=== PATIENT | female | born 1980 | race Caucasian/White ===

== ENCOUNTER 2019-10-19 15:43 | Emergency (ER) | payer BC ==
[2019-10-19] MEDS ORDERED: LORazepam 1 MG Tab PO ONE (16:24)
[2019-10-19 16:45] LABS: CHLORIDE,CL 102 mmol/L (98-107); SODIUM,NA 140 mmol/L (136-145)
[2019-10-19 16:46] LABS: ANION GAP 19.3 mmol/L (10-20)
[2019-10-19 16:56] LABS: ACETAMINOPHEN 0 ug/ml (10-30)
[2019-10-19] MEDS ORDERED: OLANZapine 10 MG Vial IM ONE (17:06)
[2019-10-19 17:15] LABS: BARBITURATE SCREEN,URINE NEGATIVE (NEGATIVE); BENZODIAZEPINES SCREEN,URINE POSITIVE (NEGATIVE); EDDP,URINE SCREEN NEGATIVE (NEGATIVE); METHAMPHETAMINE SCREEN, URINE NEGATIVE (NEGATIVE); TCA SCREEN,URINE NEGATIVE (NEGATIVE); THC SCREEN,URINE 50 NG/ML NEGATIVE (NEGATIVE)
--- NOTE | 2019-10-19 17:15 | EDM.PDOCBH ---
ED HPI GENERAL MEDICAL PROBLEM - General Chief Complaint: Behavioral/Psych Stated Complaint: ER Time Seen by Provider: 10/19/19 15:50 Source of Information: Reports: Patient History Limitations: Reports: Altered Mental Status - History of Present Illness INITIAL COMMENTS - FREE TEXT/NARRATIVE: Patient comes emergency department today her with concerns of acute psychosis recurring. This patient in March 2018 had acute psychotic episode where she was hospitalized inpatient at [facility] for approximately a month and a half. She received multiple ECT treatments. She has been following up with her psychiatrist at [facility] in [place]. Over the past about a month she has had increasing thoughts that are constantly racing. She is becoming more agitated. She has not been able to sleep at night. She has been eating and drinking appropriately. 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 She is struggling with her kids constantly being home with the current pandemic of COVID and she is getting more worked up about it. Last night she became severely agitated and paranoid that everything was going to go wrong. She had no suicidal or homicidal ideation. She comes to the ER today concerning that she has an psychotic event. She denies any hallucinations or delusions. SHe feels safe in the ED and with her . 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: Musculoskeletal History: Reports: None Neurological History: Reports: None Psychiatric History: Reports: Anxiety, Depression Endocrine/Metabolic History: Reports: None Oncologic (Cancer) History: Reports: None Dermatologic History: Reports: None - Past Surgical History Head Surgeries/Procedures: Reports: None HEENT Surgical History: Reports: None Cardiovascular Surgical History: Reports: None Female Surgical History: Reports: None Musculoskeletal Surgical History: Reports: None Social & Family History - Family History Family Medical History: Noncontributory - Caffeine Use Caffeine Use: Reports: Coffee, Soda ED ROS GENERAL - Review of Systems Review Of Systems: Comprehensive ROS is negative, except as noted in HPI. ED EXAM, BEHAVIORAL HEALTH - Physical Exam Exam: See Below Text/Narrative:: This was a very interesting exam in HPI process. Initially during her HPI the patient was very calm she was quiet there is no confusion she was very open she was tearful and she was scared. When she started talking about the bahai issues that she has with her mother as she had a very big change in her demeanor. She became very fixated [place] with very fixated eye contact. She became agitated and got my face and stated "I am not safe here any longer and I see Jarrett". She then began to be more aggitated pacing around the room telling everyone that jarrett is our savior and we need to know that and we will all be reconciled for our faults. She was more agitated and very persistent and delusional about bahai concerns. Her hygiene is appropriate. She is dressed appropriately for the outside conditions. Exam Limited By: No Limitations General Appearance: Alert, WD/WN, No Apparent Distress, Anxious Eye Exam: Bilateral Eye: EOMI Ears: Normal External Exam Nose: Normal Inspection Throat/Mouth: Normal Inspection, Normal Lips Head: Atraumatic Neck: Normal Inspection, Supple Respiratory/Chest: No Respiratory Distress, Lungs Clear, Normal Breath Sounds Cardiovascular: Normal Peripheral Pulses, Regular Rate, Rhythm GI/Abdominal: Normal Bowel Sounds, Soft (Female) Exam: Deferred Rectal (Female) Exam: Deferred Back Exam: Normal Inspection Extremities: Normal Inspection, Normal Range of Motion, No Pedal Edema, Normal Capillary Refill Neurological: Alert. No: Normal Mood/Affect (she has a very quick modulated demeanor. ) Psychiatric: Zoroastrianism Delusions. No: Normal Affect (She has a modulated very quickly changing demeanor from calm appropriate and no confusion to periods of about 15 minutes of agitation bahai delusion and fixed eye contact. ), Suicidal Plan, Suicidal Thoughts, Auditory Hallucinations, Visual Hallucinations , Paranoid Thoughts, Threatening Behavior Skin Exam: Warm, Dry, Intact, Normal color, No rash COURSE, BEHAVIORAL HEALTH COMP - Course Vital Signs: Last Vital Signs Temp 36.3 C 10/19/19 15:50 Pulse 82 10/19/19 17:41 Resp 16 10/19/19 17:41 BP 145/78 H 10/19/19 17:41 Pulse Ox 97 10/19/19 17:41 Orders, Labs, Meds: Active Orders 24 hr Category Date Time Status SALICYLATE [REF] Stat Lab 10/19/19 16:12 Received Laboratory Tests 10/19/19 10/19/19 10/19/19 Range/Units 16:12 16:12 17:10 WBC 6.6 (4.0-10.0) x10^3/uL RBC 4.41 (4.00-5.50) x10^6/uL Hgb 13.0 (12.0-16.0) g/dL Hct 38.4 (33.0-47.0) % MCV 87.1 D (78.0-93.0) fL MCH 29.5 (26.0-32.0) pg MCHC 33.9 (32.0-36.0) g/dL RDW Coeff of Andra 13.4 (10.0-15.0) % Plt Count 280 (130-400) x10^3/uL Add Manual Diff Yes Neutrophils % (Manual) 67 (50-80) % Band Neutrophils % 1 (0-6) % Lymphocytes % (Manual) 15 L (25-50) % Reactive Lymphs % 6 H (0) % Monocytes % (Manual) 11 (2-11) % Platelet Estimate Adequate Sodium 140 (136-145) mmol/L Potassium 3.3 L (3.5-5.1) mmol/L Chloride 102 (98-107) mmol/L Carbon Dioxide 22 (21-32) mmol/L Anion Gap 19.3 (10-20) mmol/L BUN 11 (7-18) mg/dL Creatinine 1.0 (0.55-1.02) mg/dL Est Cr Clr Drug Dosing 64.58 mL/min Estimated GFR (MDRD) > 60 Glucose 116 H (74-106) mg/dL Calcium 9.3 (8.5-10.1) mg/dL Corrected Calcium 8.98 (8.5-10.1) mg/dL Magnesium 2.0 (1.8-2.4) mg/dL Total Bilirubin 0.6 (0.2-1.0) mg/dL AST 24 (15-37) U/L ALT 28 (14-59) U/L Alkaline Phosphatase 59 (46-116) U/L Total Protein 7.7 (6.4-8.2) g/dL Albumin 4.4 (3.4-5.0) g/dL Globulin 3.3 Albumin/Globulin Ratio 1.33 TSH, Ultra Sensitive 1.817 (0.358-3.74) uIU/mL Urine Color Yellow (YELLOW) Urine Appearance Clear (CLEAR) Urine pH 7.0 (5.0-8.0) Ur Specific [place] 1.020 Urine Protein Negative (NEGATIVE) mg/dL Urine Glucose (UA) Negative (NEGATIVE) mg/dL Urine Ketones 15 H (NEGATIVE) mg/dL Urine Occult Blood Negative (NEGATIVE) Urine Nitrite Negative (NEGATIVE) Urine Bilirubin Negative (NEGATIVE) Urine Urobilinogen 0.2 (0.2) EU/dL Ur Leukocyte Esterase Negative (NEGATIVE) Urine Opiates Screen (NEGATIVE) Ur Buprenorphine Scrn (NEGATIVE) Ur Oxycodone Screen (NEGATIVE) Ur EDDP (Meth Metab) (NEGATIVE) Urine Methadone Screen (NEGATIVE) Acetaminophen 0 L (10-30) ug/ml Ur Barbiturates Screen (NEGATIVE) Ur Tricyclics Screen (NEGATIVE) Ur Phencyclidine Scrn (NEGATIVE) Ur Amphetamine Screen (NEGATIVE) U Methamphetamines Scrn (NEGATIVE) Urine MDMA Screen (NEGATIVE) U Benzodiazepines Scrn (NEGATIVE) U Cocaine Metab Screen (NEGATIVE) U Marijuana (THC) Screen (NEGATIVE) Ethyl Alcohol < 3 (0-3) mg/dL 10/19/19 Range/Units 17:10 WBC (4.0-10.0) x10^3/uL RBC (4.00-5.50) x10^6/uL Hgb (12.0-16.0) g/dL Hct (33.0-47.0) % MCV (78.0-93.0) fL MCH (26.0-32.0) pg MCHC (32.0-36.0) g/dL RDW Coeff of Andra (10.0-15.0) % Plt Count (130-400) x10^3/uL Add Manual Diff Neutrophils % (Manual) (50-80) % Band Neutrophils % (0-6) % Lymphocytes % (Manual) (25-50) % Reactive Lymphs % (0) % Monocytes % (Manual) (2-11) % Platelet Estimate Sodium (136-145) mmol/L Potassium (3.5-5.1) mmol/L Chloride (98-107) mmol/L Carbon Dioxide (21-32) mmol/L Anion Gap (10-20) mmol/L BUN (7-18) mg/dL Creatinine (0.55-1.02) mg/dL Est Cr Clr Drug Dosing mL/min Estimated GFR (MDRD) Glucose (74-106) mg/dL Calcium (8.5-10.1) mg/dL Corrected Calcium (8.5-10.1) mg/dL Magnesium (1.8-2.4) mg/dL Total Bilirubin (0.2-1.0) mg/dL AST (15-37) U/L ALT (14-59) U/L Alkaline Phosphatase (46-116) U/L Total Protein (6.4-8.2) g/dL Albumin (3.4-5.0) g/dL Globulin Albumin/Globulin Ratio TSH, Ultra Sensitive (0.358-3.74) uIU/mL Urine Color (YELLOW) Urine Appearance (CLEAR) Urine pH (5.0-8.0) Ur Specific [place] Urine Protein (NEGATIVE) mg/dL Urine Glucose (UA) (NEGATIVE) mg/dL Urine Ketones (NEGATIVE) mg/dL Urine Occult Blood (NEGATIVE) Urine Nitrite (NEGATIVE) Urine Bilirubin (NEGATIVE) Urine Urobilinogen (0.2) EU/dL Ur Leukocyte Esterase (NEGATIVE) Urine Opiates Screen Negative (NEGATIVE) Ur Buprenorphine Scrn Negative (NEGATIVE) Ur Oxycodone Screen Negative (NEGATIVE) Ur EDDP (Meth Metab) Negative (NEGATIVE) Urine Methadone Screen Negative (NEGATIVE) Acetaminophen (10-30) ug/ml Ur Barbiturates Screen Negative (NEGATIVE) Ur Tricyclics Screen Negative (NEGATIVE) Ur Phencyclidine Scrn Negative (NEGATIVE) Ur Amphetamine Screen Negative (NEGATIVE) U Methamphetamines Scrn Negative (NEGATIVE) Urine MDMA Screen Negative (NEGATIVE) U Benzodiazepines Scrn Positive H (NEGATIVE) U Cocaine Metab Screen Negative (NEGATIVE) U Marijuana (THC) Screen Negative (NEGATIVE) Ethyl Alcohol (0-3) mg/dL Medications Discontinued Medications Generic Name Dose Route Start Last Admin Trade Name Delfina PRN Reason Stop Dose Admin Lorazepam 2 mg 10/19/19 16:24 10/19/19 16:32 Ativan PO 10/19/19 16:25 2 mg ONETIME ONE Administration Olanzapine 10 mg 10/19/19 17:06 10/19/19 17:19 Zyprexa IM 10/19/19 17:07 10 mg ONETIME ONE Administration Re-Assessment/Re-Exam: Initially the patient was given Ativan 2mg PO about 1/2 hr later she developed more agitation and bahai persecutions. Thinks that she is seeing God. She has very fixed eye contact and very intense. She is going outside of her room to other patients room and discussing her bahai concerns. ' Give her 10 mg of Zyprexa IM. Is really interesting because these episodes above last for about 10 to 15 minutes and when she becomes lucent she knows that she just had what she relates is a psychotic episode. Back to very personable open scared appropriate non-confused or psychotic person. She really knows that she needs help so that she does not get worse. I called and spoke with Dr. Mayi Hussein Psych hospitalist kb at [facility] in [place]. HPI ER COURSE findings and concerns were relayed to him. His questions were answered and he accepted the patient in transfer to [facility] for further care and management. The patient and her are comfortable and happy with this plan. Their questions are answered and looking forward to hospitalization and management. Departure - Departure Time of Disposition: 18:09 Disposition: DC/Tfer to Acute Hospital 02 Clinical Impression: Acute psychosis - Discharge Information Referrals: Perla Cadet PA-C [Primary Care Provider] - Forms: ED Department Discharge Sepsis Event Note (ED) - Evaluation Sepsis Screening Result: No Definite Risk - Focused Exam Vital Signs: Vital Signs Temp Pulse Resp BP Pulse Ox 10/19/19 17:41 82 16 145/78 H 97 10/19/19 15:50 36.3 C 105 H 16 177/75 H 98 - My Orders Last 24 Hours: My Active Orders 10/19/19 16:12 SALICYLATE [REF] Stat - Assessment/Plan Last 24 Hours: My Active Orders 10/19/19 16:12 SALICYLATE [REF] Stat Assessment:: Acute psychosis reoccurring Plan: Transfer by ambulance to [facility] for inpatient management.
[2019-10-19 17:42] VITALS: BP 145/78; PULSE 82
== END 2019-10-19 19:10 | disposition short-term general hospital (02) ==
LOC: VM.ED 15:43 → EEVIPCON 15:43 → VM.ED 19:10
DX: F23 Brief psychotic disorder (principal); F41.9 Anxiety disorder, unspecified; F32.9 Major depressive disorder, single episode, unspecified; Z79.899 Other long term (current) drug therapy
CPT/HCPCS: 36415; 80053; 80305; 80307; 81003; 83735; 84443; 85025; 96372; 99285; A9270; J3490

== ENCOUNTER 2019-10-21 22:27 | Emergency (ER) | payer BC ==
[2019-10-21 22:36] VITALS: BP 146/89; PULSE 118
[2019-10-21] MEDS ORDERED: OLANZapine 10 MG Vial IM ONE (23:01)
[2019-10-21] MEDS ORDERED: LORazepam 2 MG/ML SDV IM ONE (23:01)
--- NOTE | 2019-10-21 23:38 | EDM.PDOC ---
ED HPI GENERAL MEDICAL PROBLEM - General Chief Complaint: Behavioral/Psych Stated Complaint: ER Time Seen by Provider: 10/21/19 22:44 Source of Information: Reports: Patient, Family, Old Records History Limitations: Reports: No Limitations - History of Present Illness INITIAL COMMENTS - FREE TEXT/NARRATIVE: Pt. presents to ER with complaints of severe anxiety and "panic attack". She states that she was discharged from [facility] today. Pt. was hospitalized at [facility] from 10/19/2019 until today 10/21/2019. Primary diagnosis was acute panic attack, unspecified psychosis, brief psychotic episode, and generalized anxiety disorder. She was started on olanzapine 10mg QHS and has only taken the medication 3 times in total. She was also prescribed ativan but has not taken any since this AM. Pt. states that she woke up tonight with racing thoughts and concerns that her is severely distressed. This is similar to her presentation during previous psychotic events. Denies any acute suicidal or homicidal ideation. states that when she woke, she was extremely anxious, crying, and shaking. She has a history of previous episode of acute psychosis in 2018 and was hospitalized at [facility] for a month and a half. During that time, she underwent ECT. 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 She was transferred to [facility] in [place] via ambulance on 10/18. At that time, she stated that she has been increasingly stressed due to the covid 19 duties at the hospital, and due to the fact that her children have been home all the time. She has 3 children at home. She is . She denies any chest pain, shortness of breath, nausea, vomiting, diarrhea, fever, chills, or cough. Onset: Today Location: Reports: Generalized - Related Data Allergies Allergy/AdvReac Type Severity Reaction Status Date / Time No Known Allergies Allergy Verified 10/21/19 22:32 Home Meds: Home Meds Multivitamin [Multi-Vitamin Daily] 1 tab PO DAILY 03/16/18 [History] LORazepam [Lorazepam] 0.5 mg PO Q4H PRN 10/19/19 [History] Magnesium Oxide 500 mg PO DAILY 10/19/19 [History] Mirtazapine 22.5 mg PO BEDTIME 10/19/19 [History] OLANZapine [ZyPREXA] 10 mg PO BEDTIME 10/21/19 [History] Past Medical History - Past Health History Medical/Surgical History: Denies Medical/Surgical History Respiratory History: Reports: None Gastrointestinal History: Reports: None Genitourinary History: Reports: None 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: Musculoskeletal History: Reports: None Neurological History: Reports: None Psychiatric History: Reports: Anxiety, Depression Endocrine/Metabolic History: Reports: None Oncologic (Cancer) History: Reports: None Dermatologic History: Reports: None - Past Surgical History Head Surgeries/Procedures: Reports: None HEENT Surgical History: Reports: None Cardiovascular Surgical History: Reports: None Female Surgical History: Reports: None Musculoskeletal Surgical History: Reports: None Social & Family History - Family History Family Medical History: Noncontributory - Tobacco Use Smoking Status *Q: Current Status Unknown - Caffeine Use Caffeine Use: Reports: Coffee, Soda ED ROS GENERAL - Review of Systems Review Of Systems: See Below Constitutional: Reports: No Symptoms HEENT: Reports: No Symptoms Respiratory: Reports: No Symptoms Cardiovascular: Reports: No Symptoms Endocrine: Reports: No Symptoms GI/Abdominal: Reports: No Symptoms : Reports: No Symptoms Musculoskeletal: Reports: No Symptoms Skin: Reports: No Symptoms Neurological: Reports: No Symptoms Psychiatric: Reports: Agitation, Anxiety Hematologic/Lymphatic: Reports: No Symptoms Immunologic: Reports: No Symptoms ED EXAM, GENERAL - Physical Exam Exam: See Below Exam Limited By: No Limitations General Appearance: Alert, WD/WN, No Apparent Distress Eye Exam: Bilateral Eye: EOMI, PERRL Throat/Mouth: Normal Lips, Normal Teeth, Normal Voice, No Airway Compromise Head: Atraumatic, Normocephalic Neck: Normal Inspection, Supple, Non-Tender Respiratory/Chest: No Respiratory Distress, Lungs Clear Cardiovascular: Normal Peripheral Pulses, No Edema, No Rub, Tachycardia Peripheral Pulses: 4+: Radial (L) Extremities: Normal Inspection, Normal Range of Motion, Non-Tender Neurological: Alert, Oriented, Normal Gait, No Motor/Sensory Deficits, Confused Psychiatric: Anxious, Tearful, Other (Pt. confused. She had forgotten that I had spoken with her initially. Repeating herself and her concerns about her . She is otherwise alert to time, date and place. She recognizes her past medical history and coworkers.) Course - Vital Signs Last Recorded V/S: Last Vital Signs Temp 36.6 C 10/21/19 22:33 Pulse 118 H 10/21/19 22:33 Resp 18 10/21/19 22:33 BP 146/89 H 10/21/19 22:33 Pulse Ox 100 10/21/19 22:33 - Orders/Labs/Meds Orders: Active Orders 24 hr Category Date Time Status ACETAMINOPHEN [CHEM] Stat Lab 10/21/19 23:23 Received Blood Alcohol [ETHANOL BLOOD MEDICAL] [CHEM] Stat Lab 10/21/19 23:23 Received COMPREHENSIVE METABOLIC PN,CMP [CHEM] Stat Lab 10/21/19 23:23 Received DRUG SCREEN, URINE [URCHEM] Stat Lab 10/21/19 23:03 Ordered INR,PT,PROTHROMBIN TIME [COAG] Stat Lab 10/21/19 23:23 Received MAGNESIUM [CHEM] Stat Lab 10/21/19 23:23 Received TSH ULTRASENSITIVE [CHEM] Stat Lab 10/21/19 23:23 Received UA RFX ENDY AND CULT IF INDIC [URIN] Stat Lab 10/21/19 23:02 Ordered Labs: Laboratory Tests 10/21/19 Range/Units 23:23 WBC 7.1 (4.0-10.0) x10^3/uL RBC 4.27 (4.00-5.50) x10^6/uL Hgb 12.6 (12.0-16.0) g/dL Hct 37.4 (33.0-47.0) % MCV 87.6 (78.0-93.0) fL MCH 29.5 (26.0-32.0) pg MCHC 33.7 (32.0-36.0) g/dL RDW Coeff of Andra 13.4 (10.0-15.0) % Plt Count 239 (130-400) x10^3/uL Neut % (Auto) 64.4 (50.0-80.0) % Lymph % (Auto) 26.6 (25.0-50.0) % [place] % (Auto) 7.8 (2.0-11.0) % Eos % (Auto) 0.6 (0.0-4.0) % Baso % (Auto) 0.6 (0.2-1.2) % Meds: Medications Discontinued Medications Generic Name Dose Route Start Last Admin Trade Name Freq PRN Reason Stop Dose Admin Lorazepam 2 mg 10/21/19 23:01 10/21/19 23:16 Ativan IM 10/21/19 23:02 2 mg STAT ONE Administration Olanzapine 5 mg 10/21/19 23:01 10/21/19 23:16 Zyprexa IM 10/21/19 23:02 5 mg ONETIME ONE Administration Departure - Departure Time of Disposition: 00:15 Disposition: DC/Tfer to Psych Hosp/Unit 65 Clinical Impression: Acute psychosis, Anxiety - Discharge Information Referrals: Perla Cadet PA-C [Primary Care Provider] - Forms: ED Department Discharge Sepsis Event Note (ED) - Evaluation Sepsis Screening Result: No Definite Risk - Focused Exam Vital Signs: Vital Signs Temp Pulse Resp BP Pulse Ox 10/21/19 22:33 36.6 C 118 H 18 146/89 H 100 - Problem List Review Problem List Initiated/Reviewed/Updated: Yes - My Orders Last 24 Hours: My Active Orders 10/21/19 23:02 UA RFX ENDY AND CULT IF INDIC [URIN] Stat 10/21/19 23:03 DRUG SCREEN, URINE [URCHEM] Stat 10/21/19 23:23 ACETAMINOPHEN [CHEM] Stat Blood Alcohol [ETHANOL BLOOD MEDICAL] [CHEM] Stat COMPREHENSIVE METABOLIC PN,CMP [CHEM] Stat INR,PT,PROTHROMBIN TIME [COAG] Stat MAGNESIUM [CHEM] Stat TSH ULTRASENSITIVE [CHEM] Stat - Assessment/Plan Last 24 Hours: My Active Orders 10/21/19 23:02 UA RFX ENDY AND CULT IF INDIC [URIN] Stat 10/21/19 23:03 DRUG SCREEN, URINE [URCHEM] Stat 10/21/19 23:23 ACETAMINOPHEN [CHEM] Stat Blood Alcohol [ETHANOL BLOOD MEDICAL] [CHEM] Stat COMPREHENSIVE METABOLIC PN,CMP [CHEM] Stat INR,PT,PROTHROMBIN TIME [COAG] Stat MAGNESIUM [CHEM] Stat TSH ULTRASENSITIVE [CHEM] Stat Plan: Pt. will be transferred to [facility] via BLS ambulance. Awaiting discussion with accepting (see EMTALA form). Pt. is a code 1. Discussed findings with patient and .
[2019-10-21 23:42] LABS: BARBITURATE SCREEN,URINE NEGATIVE (NEGATIVE); BENZODIAZEPINES SCREEN,URINE POSITIVE (NEGATIVE); EDDP,URINE SCREEN NEGATIVE (NEGATIVE); METHAMPHETAMINE SCREEN, URINE NEGATIVE (NEGATIVE); THC SCREEN,URINE 50 NG/ML NEGATIVE (NEGATIVE)
[2019-10-21 23:43] LABS: TCA SCREEN,URINE NEGATIVE (NEGATIVE)
[2019-10-22 00:02] LABS: CHLORIDE,CL 103 mmol/L (98-107); SODIUM,NA 140 mmol/L (136-145)
[2019-10-22 00:04] LABS: ACETAMINOPHEN 0 ug/ml (10-30); ANION GAP 16.4 mmol/L (10-20)
== END 2019-10-22 00:53 ==
LOC: VM.ED 22:27
DX: F41.9 Anxiety disorder, unspecified (principal); F23 Brief psychotic disorder; Z79.899 Other long term (current) drug therapy
CPT/HCPCS: 36415; 80053; 80305-QW; 80307; 81003; 83735; 84443; 85025; 85610; 96372; 99284; J2060; J3490

== ENCOUNTER 2019-11-08 21:07 | Emergency (ER) | payer BC ==
[2019-11-08] MEDS ORDERED: OLANZapine 10 MG Vial IM ONE (21:51)
[2019-11-08 22:13] VITALS: BP 158/92; PULSE 101
--- NOTE | 2019-11-08 22:21 | EDM.PDOCBH ---
ED HPI GENERAL MEDICAL PROBLEM - General Chief Complaint: Behavioral/Psych Stated Complaint: ER Time Seen by Provider: 11/08/19 21:15 Source of Information: Reports: Patient, Family History Limitations: Reports: Altered Mental Status - History of Present Illness INITIAL COMMENTS - FREE TEXT/NARRATIVE: Patient is brought to the emergency department today by her with conc erns of worsening psychosis. I had seen this patient myself approximately 1 month ago and diagnosed her with a reoccurrence of psychosis. She was placed inpatient at that time and since then has been discharged home with Zyprexa 20 mg at bedtime and lorazepam. She is scheduled to have ECT therapy in the morning. Her has been on the phone with a psychiatrist most of the day about concerns of her worsening agitation and confusion and delusions at home. She has been unable to take her ativan because of the ECT treatment tomorrow. She has increased pacing agitation delusions at home. Her is struggling with watching her and taking care of the kids at home. She has not expressed any suicidal or homicidal thoughts. She has not had these in the past. She has not been sleeping well. She has been eating and rinking appropriately and she never misses a medication timing. - Related Data Allergies Allergy/AdvReac Type Severity Reaction Status Date / Time No Known Allergies Allergy Verified 11/08/19 22:07 Home Meds: Home Meds Multivitamin [Multi-Vitamin Daily] 1 tab PO DAILY 03/16/18 [History] LORazepam [Lorazepam] 0.5 mg PO Q4H PRN 10/19/19 [History] Magnesium Oxide 500 mg PO DAILY 10/19/19 [History] Mirtazapine 22.5 mg PO BEDTIME 10/19/19 [History] OLANZapine [ZyPREXA] 10 mg PO BEDTIME 10/21/19 [History] Past Medical History - Past Health History Medical/Surgical History: Denies Medical/Surgical History Respiratory History: Reports: None Gastrointestinal History: Reports: None Genitourinary History: Reports: None [employer] 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: Reports: Musculoskeletal History: Reports: None Neurological History: Reports: None Psychiatric History: Reports: Anxiety, Depression Endocrine/Metabolic History: Reports: None Oncologic (Cancer) History: Reports: None Dermatologic History: Reports: None - Past Surgical History Head Surgeries/Procedures: Reports: None HEENT Surgical History: Reports: None Cardiovascular Surgical History: Reports: None Female Surgical History: Reports: None Musculoskeletal Surgical History: Reports: None Social & Family History - Family History Family Medical History: Noncontributory - Caffeine Use Caffeine Use: Reports: Coffee, Soda ED ROS GENERAL - Review of Systems Review Of Systems: Comprehensive ROS is negative, except as noted in HPI. ED EXAM, BEHAVIORAL HEALTH - Physical Exam Exam: See Below Exam Limited By: No Limitations General Appearance: Alert, WD/WN, No Apparent Distress Eye Exam: Bilateral Eye: EOMI, PERRL Ears: Normal External Exam Nose: Normal Inspection Throat/Mouth: Normal Inspection Neck: Normal Inspection Respiratory/Chest: No Respiratory Distress Cardiovascular: Normal Peripheral Pulses, Regular Rate, Rhythm Extremities: Normal Inspection Neurological: Alert, CN II-XII Intact Psychiatric: Restless, Agitated, Lutheran Delusions, Paranoid Thoughts. No: Poor Eye Contact (fixed eye contact. ) Skin Exam: Warm, Dry, Intact, Normal color COURSE, BEHAVIORAL HEALTH COMP - Course Vital Signs: Last Vital Signs Temp 100.4 F 11/08/19 21:10 Pulse 101 H 11/08/19 21:10 Resp 16 11/08/19 21:10 BP 158/92 H 11/08/19 21:10 Pulse Ox 97 11/08/19 21:10 Orders, Labs, Meds: Medications Discontinued Medications Generic Name Dose Route Start Last Admin Trade Name Freq PRN Reason Stop Dose Admin Olanzapine 10 mg 11/08/19 21:51 11/08/19 21:59 Zyprexa IM 11/08/19 21:52 10 mg ONETIME ONE Administration Re-Assessment/Re-Exam: I called and spoke with Dr. Clarke the psychiatrist kb at [facility] in [place]. HPI ER COURSE findings and concerns were relayed to him. He does not treat ECT patients. His guidance is Zyprexa IM and Cogentin or agitation no Benzos with ECT tomorrow and have her attend ECT in the morning from home. Zyprexa 10mg IM While preparing to discharge the patient Dr. Balbuena the patients Primary psychiatrist called and would like the patient admitted inpatient to [facility]. Dr. Balbuena is concerned for the well being of not only the patient but also the and her kids with how this has been escalating over the past 1-1.5 weeks. I discussed the plan of care for admission with the patient and her . They are both very happy about this and are willing to go voluntarily to [facility] inpatient management. The will drive the patient to [facility] in [place]. He is aware if an concerns develop enroute to call 911 for assistance. Departure - Departure Time of Disposition: 22:17 Disposition: DC/Tfer to Acute Hospital 02 Clinical Impression: Psychosis Qualifiers: Psychosis type: unspecified psychosis type Qualified Code(s): F29 - Unspecified psychosis not due to a substance or known physiological condition - Discharge Information Referrals: Perla Cadet PA-C [Primary Care Provider] - Forms: ED Department Discharge, Interfacility Transfer EMTALA Additional Instructions: From here in [place] go directly to [facility]. [facility]. [address] [place] ON the West side of the building the main entrance and parking lot enter there and see security to get to room. 353. Sepsis Event Note (ED) - Evaluation Sepsis Screening Result: No Definite Risk - Focused Exam Vital Signs: Vital Signs Temp Pulse Resp BP Pulse Ox 11/08/19 21:10 100.4 F 101 H 16 158/92 H 97 - Assessment/Plan Assessment:: psychosis-agitation and delusions. Plan: From here in [place] [facility] go directly to [facility]. [facility]. [address] [place] ON the West side of the building the main entrance and parking lot enter there and see security to get to room. 353.
== END 2019-11-08 23:00 | disposition short-term general hospital (02) ==
LOC: EEVIPCON 21:07 → VM.ED 21:07
DX: F29 Unspecified psychosis not due to a substance or known physiological condition (principal); F41.9 Anxiety disorder, unspecified; F32.9 Major depressive disorder, single episode, unspecified; Z79.899 Other long term (current) drug therapy
CPT/HCPCS: 96372; 99285; J3490

== ENCOUNTER 2024-09-22 08:33 | Day surgery (SDC) | payer BC ==
[2024-09-22] MEDS: Lactated Ringers 1,000 ML IV SCH (08:56)
[2024-09-22] MEDS ORDERED: Propofol 200 MG/20 ML SDV ONE ×2 (09:00→10:30)
[2024-09-22] MEDS ORDERED: fentaNYL 100 MCG/2 ML SDV ONE (09:00)
[2024-09-22 11:17] VITALS: BP 107/69; PULSE 76
== END 2024-09-22 12:25 | disposition home or self-care (01) ==
LOC: VM.SDS 08:33
PROVIDERS: ATTEND Family Medicine
DX: Z12.11 Encounter for screening for malignant neoplasm of colon (principal); K64.4 Residual hemorrhoidal skin tags; K62.89 Other specified diseases of anus and rectum; Z88.8 Allergy status to other drugs, medicaments and biological substances; Z86.16 Personal history of COVID-19; Z83.719 Family history of colon polyps, unspecified; Z79.899 Other long term (current) drug therapy
CPT/HCPCS: J2704; J3010; J7120